=== PATIENT | male | born 1955 | race African-American/Black ===

== ENCOUNTER 2018-07-11 03:42 | Inpatient (IN) | payer MEDICARE ==
[2018-07-11 04:40] LABS: INR-International Normal Ratio 1.3; Prothrombin Time 15.9 SEC (12.0-14.7)
[2018-07-11 04:50] LABS: ALT (SGPT) 14 U/L (8-55); AST (SGOT) 21 U/L (5-34); Acetaminophen Less than 6.0 mcg/mL (10.0-30.0); Alcohol Less than 10 mg/dL (Less than 10); Alkaline Phosphatase 97 U/L (40-150); Anion Gap 18 mmol/L (10-20); BUN (Urea Nitrogen) 102 mg/dL (8.4-25.7); Bilirubin, Total 0.3 mg/dL (0.2-1.2); CK (CPK) 200 U/L (30-200); Calc. Creatinine Clearance 0 mL/min (70-130); Calcium 9.2 mg/dL (7.8-10.44); Carbon Dioxide 17 mmol/L (23-31); Chloride 108 mmol/L (98-107); Estimated GFR-MDRD 14; Glucose 136 mg/dL (80-115); Potassium 4.6 mmol/L (3.5-5.1); Salicylate Less than 8.0 mg/dL (15.0-30.0); Sodium 138 mmol/L (136-145)
[2018-07-11 04:52] LABS: CKMB 1.6 ng/mL (0-6.6); Troponin I 0.013 ng/mL (< 0.028)
[2018-07-11 04:54] LABS: Hemoglobin 9.2 g/dL (14.0-18.0); Mean Corpuscular HGB CONC 32.5 g/dL (32.0-36.0); Mean Corpuscular Hemoglobin 29.9 pg (27.0-31.0); Mean Corpuscular Volume 91.8 fL (78.0-98.0); Mean Platelet Volume 6.5 fL (7.4-10.4); Platelet Count 457 thou/uL (130-400); RBC Distribution Width 16.3 % (11.5-14.5); Red Blood Cell (RBC) Count 3.06 mill/uL (4.70-6.10); Reflex for Review?? YES
[2018-07-11 05:01] LABS: Band 22 % (5-11); Eosinophils 2 % (0-10); Lymphocytes 2 % (21-51); MDiff Complete? YES; Metamyelocyte 8 % (0-0); Monocytes 4 % (0-10); Myelocyte 11 % (0-0); Neutrophil 51 % (42-75); PLT Morphology Comment Appears Increased
[2018-07-11] MEDS ORDERED: niCARdipine 20MG In NaCl 20 MG/200 ML BAG ONE ×2 (05:03→07:39)
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
[2018-07-11] MEDS ORDERED: Ondansetron ODT 4 MG TAB PO PRN (07:47)
[2018-07-11] MEDS ORDERED: Acetaminophen 650 MG Suppository PR PRN (07:47)
--- NOTE | 2018-07-11 07:54 | CT ---
CT OF THE BRAIN WITHOUT CONTRAST: INDICATION: History of altered mental status. COMPARISON: Prior CT of the brain dated 12/29/15 and CTA of the head dated 09/18/12. Comparison is also made with an MRI of the brain dated 12/31/15. FINDINGS: There has been interval development of intraventricular hemorrhage distending the third ventricle. T his is new from the comparison examination. No hydrocephalus is evident. No definite acute infarct is noted. There is a large left parietal temporal region of encephalomalacia likely related to prior infarct. There is ex vacuo dilatation of the posterior horn and temporal horn of the left lateral v entricle. There are stable chronic lacunar infarcts involving the thalami bilaterally as well as the right globus pallidus. Lacunar infarcts involving the paramedian yoel and right inferior cerebellar hemisphere. There is some mucosal thickening within the inferior aspect of the right maxillary sinu s. Mastoid air cells are clear. The skull is intact. IMPRESSION: 1. New intraventricular hemorrhage distending the third ventricle without evidence of hydrocephalus. Recommend followup CTA of the head with contrast for evaluation for possible underlying aneurysm. No evidence of aneurysm was seen on a CTA of the head in 09/18/12. These findings were called to Dr. Darden at 4:50 a.m. on 07/11/18. 2. Stable chronic ischemic change as above. CODE CR POS: HEATHER
--- NOTE | 2018-07-11 07:56 | PRG ---
DATE OF SERVICE: 07/11/2018 The patient was seen and examined and agree with Liana García PA-C's evaluation, 07/10/2018. The patient is a 63-year-old man, who was admitted for complaints of insomnia and nausea. He has a m ild delirium, being oriented only to person, although he was interactive. He has no focal deficit. He has a past medical history including CML, hypertension, and has been fou nd to have significant renal dysfunction on admission. CT of the head reveals a third ventricular hemorrhage. This was not present on previous imaging in 0 12/2015, although he does have evidence of a previous stroke in both the left hemisphere and the brain stem. There is no ventriculomegaly. IMPRESSION AND PLAN: The patient has a new intraventricular hemorrhage, which may or may not be rela erick to his presenting complaints. He had significant metabolic issues that are being worked up by Me cottrell. No neurosurgical intervention is planned. I recommend a repeat head CT in the morning, whic h we will coordinate.
--- NOTE | 2018-07-11 07:58 | RAD ---
PORTABLE CHEST 1 VIEW: PORTABLE CHEST 1 VIEW: DATE: 07/11/18. Time: 4:09 A.M. HISTORY: Altered mental status. FINDINGS: Comparison is made with the exam of 12/10/16. The heart size is normal. There is continued blunting of the right costophrenic angle. No lobar con solidation, pneumothoraces, fredrick pulmonary edema, or large effusion is seen. There are degenerative changes in the spine. IMPRESSION: Stable exam since 12/10/16. POS: PAULINO
[2018-07-11] MEDS: Ondansetron HCl/PF 4 MG/2 ML Vial IVP PRN ×2 (08:54→16:01)
[2018-07-11] MEDS: Famotidine/PF 20 mg/2ml Vial SLOW IVP SCH (08:54)
[2018-07-11] MEDS ORDERED: Lorazepam 2 MG/ML VIAL ONE (09:16)
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
[2018-07-11 13:06] LABS: Uric Acid 12.9 mg/dL (3.5-7.2)
[2018-07-11] MEDS ORDERED: Amlodipine 10 MG TAB PO SCH (14:45)
[2018-07-11] MEDS: Acetaminophen 325 MG TAB PO PRN (16:00)
[2018-07-11] MEDS: niCARdipine HCl 25 MG in Sodium Chloride 0.9% 250 ML 240 ML IVPB SCH ×2 (16:00→21:41)
[2018-07-11] MEDS: Sodium Chloride 0.9% 1,000 ML IV SCH ×2 (16:09→21:41)
[2018-07-11 16:33] VITALS: BMI 21.6
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
--- NOTE | 2018-07-11 19:33 | ULT ---
RENAL ULTRASOUND: 07/11/18 INDICATION: Acute renal insufficiency. Pina scale and doppler color flow imaging performed. FINDINGS: Symmetric size of each kidney approximately 8 cm in length present. There is no discrete renal mass o r hydronephrosis evident bilaterally. The urinary bladder is mildly distended, grossly unremarkable. IMPRESSION: No overt hydronephrosis. POS: [facility]
[2018-07-11 19:37] LABS: Amphetamine Not Detected (NotDetected); Barbiturates Screen Not Detected (NotDetected); Benzodiazepine Screen Detected (NotDetected); Cocaine Metabolite Screen Not Detected (NotDetected); Medtox Control Line Valid? VALID (VALID); Medtox Reader # READER 4; Methadone Not Detected (NotDetected); Methamphetamine Not Detected (NotDetected); Opiate Screen Not Detected (NotDetected); Oxycodone Screen Not Detected (NotDetected); Phencyclidine (PCP) Not Detected (NotDetected); THC/Cannabinoid Screen Not Detected (NotDetected); Tricyclic Screen Not Detected (NotDetected)
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
--- NOTE | 2018-07-12 03:31 | CON ---
NEPHROLOGY CONSULT DATE OF CONSULTATION: 07/11/2018 CONSULTING PHYSICIAN: Dr. White. REASON FOR CONSULTATION: Acute kidney injury with elevated uric acid. REASON FOR ADMISSION: Altered mentation. HISTORY OF PRESENT ILLNESS: This is a 63-year-old with history of hyperlipidemia, hypertension, CML, gout, CKD, came to the hospital with an altered mentation and was found to have elevated creatinine and patient's baseline creatinine runs around 3.5-3.7 and was found to be 5.1. His uric acid also el evated with a white count of 201 and Nephrology is consulted to rule out tumor lysis and hyperviscosi ty syndrome. Now the patient is not able to give good history due to the stroke and he has word finding difficulti es. No chest pain or palpitation reported. PAST MEDICAL HISTORY: Positive for hyperlipidemia, hypertension, CML, speech impairment, vision loss , hearing loss, chronic kidney disease, gout, depression and sent home. PAST SURGICAL HISTORY: Abdominal surgery, left leg surgery. HOME MEDICATIONS: Hydralazine, venlafaxine, allopurinol, amlodipine, Sprycel, Toprol-XL, sodium bica rbonate, trazodone. ALLERGIES: CODEINE. SOCIAL HISTORY: No smoking, alcohol, or illicit drug abuse. FAMILY HISTORY: No history of any kidney disease. REVIEW OF SYSTEMS: Cannot be obtained. PHYSICAL EXAMINATION: GENERAL: This is a well-built male in mild distress. VITAL SIGNS: Temperature 98.7, pulse 100, respiratory rate 18, blood pressure 136/80. HEENT: Atraumatic, normocephalic. Oral mucosa moist. NECK: Supple. No masses. CARDIOVASCULAR: S1, S2 heard. Rate and rhythm regular. RESPIRATORY: Clear. GASTROINTESTINAL: Abdomen is soft. MUSCULOSKELETAL: 1+ edema. DERMATOLOGIC: No skin rash. NEUROLOGIC: Alert, awake. PSYCHIATRIC: Mood and affect normal. LABORATORY DATA: Hemoglobin is 9.2, WBC is 201, potassium 4.6, BUN is 102, creatinine is 5.1. ASSESSMENT AND PLAN: 1. Acute kidney injury on chronic kidney disease stage 4 with recommend IV hydration. Avoid nephrot oxins. 2. Hypouricemia, slightly tumor lysis syndrome. Follow up with Hematology/Oncology and consider elsie buricase if possible. 3. Leukocytosis, severe. 4. Anemia. Follow with Hematology/Oncology. 5. Metabolic acidosis. 6. Edema, controlled. 7. Hypertension, stable. 8. Phosphorus level normal. Calcium level is normal. Potassium level , no acute indication fo r dialysis. We will start on IV fluids. We will consider rasburicase in consultation with Hematolog y/Oncology. We will continue to follow. Thank you for the consult.
[2018-07-12] MEDS: niCARdipine HCl 25 MG in Sodium Chloride 0.9% 250 ML 240 ML IVPB SCH ×2 (05:30→09:11)
[2018-07-12] MEDS: Sodium Chloride 0.9% 1,000 ML IV SCH ×2 (05:32→10:29)
[2018-07-12 05:51] LABS: ALT (SGPT) 11 U/L (8-55); AST (SGOT) 19 U/L (5-34); Albumin 3.4 g/dL (3.4-4.8); Alkaline Phosphatase 77 U/L (40-150); Anion Gap 14 mmol/L (10-20); BUN (Urea Nitrogen) 103 mg/dL (8.4-25.7); Bilirubin, Total 0.2 mg/dL (0.2-1.2); Calc. Creatinine Clearance 14 mL/min (70-130); Calcium 8.4 mg/dL (7.8-10.44); Carbon Dioxide 15 mmol/L (23-31); Cardiac Risk 6.3 (Less than 4.5); Chloride 116 mmol/L (98-107); Cholesterol 113 mg/dl (< 200 Desired); Estimated GFR-MDRD 15; Globulin 2.6 g/dL (2.4-3.5); Glucose 119 mg/dL (80-115); HDL Cholesterol 18 mg/dL (>60 Neg Risk); LDL Cholesterol, Calculated 36 mg/dL; Magnesium 1.8 mg/dL (1.6-2.6); Potassium 4.9 mmol/L (3.5-5.1); Sodium 140 mmol/L (136-145); Triglycerides 295 mg/dL (Less than 150)
[2018-07-12 07:02] LABS: Hemoglobin 6.6 g/dL (14.0-18.0); Mean Corpuscular HGB CONC 30.1 g/dL (32.0-36.0); Mean Corpuscular Hemoglobin 27.9 pg (27.0-31.0); Mean Corpuscular Volume 92.5 fL (78.0-98.0); Mean Platelet Volume 6.6 fL (7.4-10.4); Platelet Count 388 thou/uL (130-400); RBC Distribution Width 16.1 % (11.5-14.5); Red Blood Cell (RBC) Count 2.38 mill/uL (4.70-6.10)
--- NOTE | 2018-07-12 07:46 | CT ---
PRELIMINARY REPORT/[facility]/EMERGENTY AFTER-HOURS PROCEDURE CT Head Without Intravenous Contrast CLINICAL HISTORY: 63 years old, male; Condition or disease; Aneurysm, cerebral; Patient HX: F/u eval ich TECHNIQUE: Axial computed tomography images of the head/brain without intravenous contrast. COMPARISON: CT Brain WO Con 07/11/2018 4:43 AM FINDINGS: As before, there is evidence for acute/recent hemorrhage within the third ventricle. There is also a more rounded area of hemorrhage just superior to third ventricle, measuring 14 mm in AP diameter. This appears slightly smaller in the interval, previously measuring 16 mm. No definite new hemorrhage in the interval. Ventricle size is not significantly changed, no obvious hydrocephalus. Continued followup will be helpful to exclude developing hydrocephalus. There is decreased attenuation in the periventricular white matter, likely from microvascular disease . There are old lacunar infarcts in the basal ganglia regions and thalami bilaterally, more prominent o n the right. Old infarcts again seen seen in the left temporal/posterior parietal/occipital regions. No definite acute infarct by CT. No definite acute skull fracture. Included paranasal sinuses are essentially clear. IMPRESSION: Essentially stable intracranial hemorrhage, see above details/discussion. No definite new hemorrhage in the interval. Stable ventricle size, no obvious hydrocephalus at this time. Changes of microvascular disease, and old infarcts, details above. Thank you for allowing us to participate in the care of your patient. Dictated and Authenticated by: Barry Mclean MD 07/12/2018 3:46 AM Central Time ([place] & [place]) FINAL REPORT HEAD CT WITHOUT CONTRAST: Comparison: 07-11-18 History: Evaluate endocranial hemorrhage. Follow up exam. FINDINGS/IMPRESSION: This report is in agreement with the preliminary report by [facility]. Stable intraventricular hemorrhage. S table configuration of the ventricular system. Stable malacic change and ex vacuo dilation involving the left cerebrum. POS: [facility]
[2018-07-12 08:12] LABS: Band 23 % (5-11); Blast 1 % (0-0); Lymphocytes 2 % (21-51); MDiff Complete? YES; Metamyelocyte 7 % (0-0); Monocytes 2 % (0-10); Myelocyte 12 % (0-0); Neutrophil 52 % (42-75); Reflex for Review?? NO
[2018-07-12] MEDS: Famotidine/PF 20 mg/2ml Vial SLOW IVP SCH (08:24)
[2018-07-12] MEDS: Amlodipine 10 MG TAB PO SCH (08:25)
[2018-07-12] MEDS ORDERED: Prevnar 13-Val Conj/PF 0.5 ML SYRINGE IM ONE (09:00)
--- NOTE | 2018-07-12 11:26 | PRG ---
DATE OF SERVICE: 07/12/2018 Mr. Saha is alert and appropriate in general. He is nonfocal. His repeat CT scan is unchanged. Devin hall has a third ventricular hemorrhage without evidence of hydrocephalus. ASSESSMENT AND PLAN: Spontaneous third ventricular hemorrhage. I agree with Dr. Olsen that this ma y represent poor platelet function in the setting of his chronic myelogenous leukemia and/or renal di sease. We have no plans for neurosurgical intervention. I will arrange for a followup CT scan in 4 weeks.
--- NOTE | 2018-07-12 12:57 | PRG ---
DATE OF SERVICE: 07/12/2018 SERVICE: Pulmonary Medicine INTERVAL HISTORY: The patient is doing fine from a respiratory standpoint. He is breathing comfortably. Neurologically, he has been stable. His blood pressures are still elevated requiring some blood pressure medications. Otherwise, there has been no interval change to his condition. He got started on anti-uric acid medications. PHYSICAL EXAMINATION: VITAL SIGNS: Currently afebrile with a T-max of 100.2, pulse 121, blood pressure 145/83, respirations 18, saturation 100% on room air. GENERAL: The patient is awake, alert, in no apparent distress. LUNGS: Decent air entry. There is no prolonged expiratory phase or wheezing present. HEART: Normal rate, regular. ABDOMEN: Soft, nontender, nondistended. Bowel sounds are positive. MUSCULOSKELETAL: No cyanosis or clubbing. There is no pitting in the bilateral lower extremities. LABORATORY DATA: WBC 181,000, hemoglobin 6.6, platelets 388,000. Creatinine 4.93 and down trending, BUN 103, anion gap 14, bicarbonate 15 and down trending , chloride 116, increasing, sodium 140. Liver function studies are essentially unremarkable. LDH 668. Phosphorus falls within normal limits. Uric acid level was elevated at 12.9. Urine drug screen is positive for benzodiazepines. IMAGING: CT of the head demonstrates stable intraventricular hemorrhage. Stable chronic stroke changes in the left cerebrum are also noted. ASSESSMENT: 1. Intraventricular hemorrhage. 2. Hypertensive emergency. 3. Chronic myelogenous leukemia. 4. Tumor lysis syndrome, mild. 5. Acute kidney injury on chronic kidney disease 4. DISCUSSION AND PLAN: We will add Coreg back to the patient's medications. Hopefully, we will be able to transition him off of his Nicardipine drip. Once he does, he can be transitioned to the medical unit. Pulmonary Critical Care will continue to follow along while patient remains in this location. PATRICIO
[2018-07-12] MEDS ORDERED: Carvedilol 6.25 MG TAB PO SCH (13:00)
[2018-07-12] MEDS: Sodium Bicarbonate 100 MEQ in Dextrose 5% in Water 1,000 ML IV SCH ×2 (14:32→23:24)
[2018-07-12] MEDS: Carvedilol 6.25 MG TAB PO SCH (17:45)
--- NOTE | 2018-07-12 17:45 | PRG ---
DATE OF SERVICE: 07/12/2018 SUBJECTIVE: Patient was seen and examined at bedside and overnight events noted. Patient denies any shortness of breath or chest pain or palpitation. No history of nausea or vomiting or diarrhea or f ever or chills or cramps. OBJECTIVE: GENERAL: This is a well-built male in no apparent distress. VITAL SIGNS: Temperature 99, pulse 112, respiratory rate 18, blood pressure 118/61. HEENT: Atraumatic, normocephalic. Oral mucosa is moist. NECK: Supple. CARDIOVASCULAR: S1, S2 heard. Rate and rhythm regular. RESPIRATORY: Clear to auscultation. GASTROINTESTINAL: Abdomen is soft. MUSCULOSKELETAL: No tenderness. No edema. DERMATOLOGIC: No skin rash. NEUROLOGIC: Alert and awake and oriented x3. No focal neurologic deficits. Moving all the extremiti es. PSYCHIATRIC: Mood and affect normal. LABORATORY DATA: Potassium is 4.9, bicarbonate is 15, BUN 103, creatinine is 4.93. ASSESSMENT AND PLAN: 1. Acute kidney injury on chronic kidney disease stage 4. Renal function with slight improvement. W e will continue to follow. Avoid nephrotoxins and continue IV fluids. 2. Hyperuricemia. We will recheck uric acid. Continue IV fluids. Consider Rasburicase for . 3. Tumor lysis syndrome, mild. 4. Metabolic acidosis. 5. Edema, controlled. 6. Anemia. 7. Renal function seems to be stable. Avoid nephrotoxins and will continue IV fluids.
[2018-07-12] MEDS: Allopurinol 100 MG TAB PO SCH (21:54)
[2018-07-13 05:22] LABS: Phosphorus 2.9 mg/dL (2.3-4.7); Uric Acid 13.1 mg/dL (3.5-7.2)
[2018-07-13 06:37] LABS: Mean Corpuscular HGB CONC 29.9 g/dL (32.0-36.0); Mean Corpuscular Hemoglobin 27.4 pg (27.0-31.0); Mean Corpuscular Volume 91.5 fL (78.0-98.0); Mean Platelet Volume 6.9 fL (7.4-10.4); Platelet Count 362 thou/uL (130-400); RBC Distribution Width 16.3 % (11.5-14.5); Red Blood Cell (RBC) Count 2.21 mill/uL (4.70-6.10)
[2018-07-13 06:47] LABS: Anion Gap 18 mmol/L (10-20); BUN (Urea Nitrogen) 91 mg/dL (8.4-25.7); Calc. Creatinine Clearance 15 mL/min (70-130); Calcium 8.7 mg/dL (7.8-10.44); Carbon Dioxide 18 mmol/L (23-31); Chloride 108 mmol/L (98-107); Estimated GFR-MDRD 15; Glucose 110 mg/dL (80-115); Potassium 3.9 mmol/L (3.5-5.1); Sodium 140 mmol/L (136-145)
[2018-07-13 06:51] LABS: MDiff Complete? YES
[2018-07-13 06:52] LABS: Band 23 % (5-11); Eosinophils 2 % (0-10); Lymphocytes 3 % (21-51); Metamyelocyte 7 % (0-0); Monocytes 8 % (0-10); Myelocyte 1 % (0-0); Neutrophil 56 % (42-75); Nucleated RBC 2 % (0); PLT Morphology Comment Appears Adequate
[2018-07-13] MEDS: Famotidine/PF 20 mg/2ml Vial SLOW IVP SCH (09:00)
[2018-07-13] MEDS: Carvedilol 6.25 MG TAB PO SCH ×2 (09:00→17:35)
[2018-07-13] MEDS: Amlodipine 10 MG TAB PO SCH (09:01)
[2018-07-13] MEDS: Allopurinol 100 MG TAB PO SCH ×2 (09:01→21:14)
[2018-07-13] MEDS: Nicotine 14 MG PATCH TOP SCH (09:54)
[2018-07-13 11:45] LABS: Ref Lab Test Ordered G-6-PD; Reference Lab Name LABCORP
[2018-07-13] MEDS: Sodium Bicarbonate 100 MEQ in Dextrose 5% in Water 1,000 ML IV SCH (14:12)
--- NOTE | 2018-07-13 14:33 | PDOC.PN ---
- Subjective Encounter Start Date: 07/12/18 Encounter Start Time: 09:30 pt seen in ICU. working with PT. tachycardic and regular. confused, not agitated. No acute overnight events, speech sounds better, no focal deficits, no F/C, no N /V/D/C ROS not obtainable due to dementia - Objective Resuscitation Status: Resuscitation Status FULL:Full Resuscitation MAR Reviewed: Yes Vital Signs & Weight: Vital Signs (12 hours) Temp Pulse Pulse Pulse Resp BP BP 07/13/18 11:59 99.6 F 103 H 16 07/13/18 10:12 104 H 101 H 144/79 H 07/13/18 09:01 100 144/78 H 07/13/18 09:00 144/78 H 07/13/18 07:30 100.2 F H 100 20 07/13/18 04:00 99.8 F H 113 H 20 BP BP Pulse Ox 07/13/18 11:59 132/73 95 07/13/18 10:12 138/81 07/13/18 09:01 07/13/18 09:00 07/13/18 07:30 144/78 H 94 L 07/13/18 04:00 136/72 100 Weight Admit Weight 142 lb 3.17 oz Weight 142 lb 3.17 oz Most Recent Monitor Data Heart Rate from ECG 111 NIBP 134/78 NIBP BP-Mean 90 Respiration from ECG 22 SpO2 100 I&O: 07/12/18 07/13/18 07/14/18 06:59 06:59 06:59 Intake Total 3375 3076 600 Output Total 1085 0 Balance 2290 3076 600 Result Diagrams: 07/13/18 04:40 07/13/18 04:40 Phys Exam - Physical Examination Constitutional: NAD HEENT: PERRLA, moist MMs, sclera anicteric, oral pharynx no lesions Neck: no nodes, no JVD, supple, full ROM Respiratory: no wheezing, no rales, no rhonchi, clear to auscultation bilateral Cardiovascular: RRR, no significant murmur, no rub Gastrointestinal: soft, non-tender, no distention, positive bowel sounds Musculoskeletal: no edema, pulses present Neurological: moves all 4 limbs Lymphatic: no nodes Skin: no rash, normal turgor, cap refill <2 seconds Dx/Plan (1) VINCENT (acute kidney injury) Code(s): N17.9 - ACUTE KIDNEY FAILURE, UNSPECIFIED Status: Acute (2) Hypertensive urgency Code(s): I16.0 - HYPERTENSIVE URGENCY Status: Acute (3) Intraventricular hemorrhage Code(s): I61.5 - NONTRAUMATIC INTRACEREBRAL HEMORRHAGE, INTRAVENTRICULAR Status: Acute (4) Metabolic encephalopathy Code(s): G93.41 - METABOLIC ENCEPHALOPATHY Status: Acute (5) CKD (chronic kidney disease), stage IV Code(s): N18.4 - CHRONIC KIDNEY DISEASE, STAGE 4 (SEVERE) Status: Chronic (6) CML (chronic myelocytic leukemia) Code(s): C92.10 - CHRONIC MYELOID LEUK, BCR/ABL-POSITIVE, NOT ACHIEVE REMIS Status: Chronic (7) GERD (gastroesophageal reflux disease) Code(s): K21.9 - GASTRO-ESOPHAGEAL REFLUX DISEASE WITHOUT ESOPHAGITIS Status: Chronic (8) Gout Code(s): M10.9 - GOUT, UNSPECIFIED Status: Chronic Qualifiers: Gout site: unspecified site Gout etiology: unspecified cause Chronicity: chronic Presence of tophus: without tophus Qualified Code(s): M1A.9XX0 - Chronic gout, unspecified, without tophus (tophi) (9) Hypertension Code(s): I10 - ESSENTIAL (PRIMARY) HYPERTENSION Status: Chronic Qualifiers: Hypertension type: essential hypertension Qualified Code(s): I10 - Essential (primary) hypertension - Plan cont current plan of care, PT/OT, social studies teacher, speech therapy, respiratory therapy * . follow up on NSG rec, PT/OT findings Renal follow ing for VINCENT on CKD,m and Heme/Onc following for CML
--- NOTE | 2018-07-13 14:37 | PDOC.PN ---
- Subjective Encounter Start Date: 07/13/18 Encounter Start Time: 10:15 -: non-verbal pt more agitated today, trying to get up and leave. No F/C, no N/V/D/C, no CP or SOB No other acute events. Repeat CT neg for change in the bleed. Heme and Renal following ROS not obtainable - Objective Resuscitation Status: Resuscitation Status FULL:Full Resuscitation MAR Reviewed: Yes Vital Signs & Weight: Vital Signs (12 hours) Temp Pulse Pulse Pulse Resp BP BP 07/13/18 11:59 99.6 F 103 H 16 07/13/18 10:12 104 H 101 H 144/79 H 07/13/18 09:01 100 144/78 H 07/13/18 09:00 144/78 H 07/13/18 07:30 100.2 F H 100 20 07/13/18 04:00 99.8 F H 113 H 20 BP BP Pulse Ox 07/13/18 11:59 132/73 95 07/13/18 10:12 138/81 07/13/18 09:01 07/13/18 09:00 07/13/18 07:30 144/78 H 94 L 07/13/18 04:00 136/72 100 Weight Admit Weight 142 lb 3.17 oz Weight 142 lb 3.17 oz Most Recent Monitor Data Heart Rate from ECG 111 NIBP 134/78 NIBP BP-Mean 90 Respiration from ECG 22 SpO2 100 I&O: 07/12/18 07/13/18 07/14/18 06:59 06:59 06:59 Intake Total 3375 3076 600 Output Total 1085 0 Balance 2290 3076 600 Result Diagrams: 07/13/18 04:40 07/13/18 04:40 Radiology Reviewed by me: Yes Phys Exam - Physical Examination Constitutional: NAD HEENT: PERRLA, moist MMs, sclera anicteric, oral pharynx no lesions Neck: no nodes, no JVD, supple, full ROM Respiratory: no wheezing, no rales, no rhonchi, clear to auscultation bilateral Cardiovascular: RRR, no significant murmur, no rub Gastrointestinal: soft, non-tender, no distention, positive bowel sounds Musculoskeletal: no edema Neurological: non-focal Lymphatic: no nodes Psychiatric: normal affect Skin: no rash, normal turgor, cap refill <2 seconds Dx/Plan (1) VINCENT (acute kidney injury) Code(s): N17.9 - ACUTE KIDNEY FAILURE, UNSPECIFIED Status: Acute Comment: renal following. on bcarb drip, but keeps pulling IV off and trying to get up (2) Hypertensive urgency Code(s): I16.0 - HYPERTENSIVE URGENCY Status: Resolved (3) Intraventricular hemorrhage Code(s): I61.5 - NONTRAUMATIC INTRACEREBRAL HEMORRHAGE, INTRAVENTRICULAR Status: Acute (4) Metabolic encephalopathy Code(s): G93.41 - METABOLIC ENCEPHALOPATHY Status: Acute (5) CKD (chronic kidney disease), stage IV Code(s): N18.4 - CHRONIC KIDNEY DISEASE, STAGE 4 (SEVERE) Status: Chronic (6) CML (chronic myelocytic leukemia) Code(s): C92.10 - CHRONIC MYELOID LEUK, BCR/ABL-POSITIVE, NOT ACHIEVE REMIS Status: Chronic (7) GERD (gastroesophageal reflux disease) Code(s): K21.9 - GASTRO-ESOPHAGEAL REFLUX DISEASE WITHOUT ESOPHAGITIS Status: Chronic (8) Gout Code(s): M10.9 - GOUT, UNSPECIFIED Status: Chronic Qualifiers: Gout site: unspecified site Gout etiology: unspecified cause Chronicity: chronic Presence of tophus: without tophus Qualified Code(s): M1A.9XX0 - Chronic gout, unspecified, without tophus (tophi) (9) Hypertension Code(s): I10 - ESSENTIAL (PRIMARY) HYPERTENSION Status: Chronic Qualifiers: Hypertension type: essential hypertension Qualified Code(s): I10 - Essential (primary) hypertension - Plan cont current plan of care, PT/OT, web content & social media manager * .
--- NOTE | 2018-07-13 18:01 | PRG ---
DATE OF SERVICE: 07/13/2018 SERVICE: Pulmonary Medicine. INTERVAL HISTORY: The patient is doing fine from a respiratory standpoint. He has been normal change to his condition. He denies any shortness of breath or chest discomfort currently. Kidney function is improving a little bit. He certainly breathing comfortably and has no complaints there. He did not have cough or sputum production. OBJECTIVE: VITAL SIGNS: Afebrile, pulse 109, blood pressure 137/77, respirations 16, saturation 96% on room air. GENERAL: The patient is awake, alert, no apparent distress. LUNGS: Excellent air entry with no prolonged expiratory phase or wheezing. HEART: Normal rate, regular. ABDOMEN: Soft, nontender, nondistended. Bowel sounds are positive. MUSCULOSKELETAL: No cyanosis or clubbing. There is no pitting in the bilateral lower extremities. NEUROLOGIC: Grossly nonfocal. LABORATORY DATA: WBC 183,000, hemoglobin 6.0, platelets 362. INR 1.3. Creatinine 4.81, gently down trending. BUN 91. Basic metabolic profile is otherwise unremarkable. Toxicology is positive for benzodiazepines, but otherwise unremarkable. Uric acid level continues to increase. ASSESSMENT: 1. Intraventricular hemorrhage. 2. Hypertensive emergency. 3. Chronic myelogenous leukemia. 4. Tumor lysis syndrome, minimal. 5. Acute kidney injury on chronic kidney disease IV. DISCUSSION AND PLAN: At this point, the patient has no further requirements for inpatient Pulmonary Critical Care opinion. He tells me that his oncologist is Trinity Mak M.D., over at [facility]. I actually called Trinity and it turns out that she has not been at [facility] for over 3 years and she is actually relocated to [facility] in a different location altogether. She has no records available because she is in a different system and has no access to [facility] records. As such, if we want any additional information, we will have to go through [facility]. He was previously put on hospice because he was not going to be a good candidate for dialysis. He has been on hospice for over 8 months at this point. When he was at home, he hit his lifeline alert. The alert should have called hospice, but emergency services were dispatched instead. As such, he ended up being brought back to the hospital. From my perspective, hospice would be an appropriate disposition , if the patient does not want (or cannot have) dialysis or chemotherapy moving forward. Please call with additional questions or concerns moving forward, but at this point, he has no further requirements for my opinion and I will disappear. MTDD
--- NOTE | 2018-07-13 19:05 | PRG ---
DATE OF SERVICE: 07/13/2018 SUBJECTIVE: Patient was seen and examined at bedside and overnight events noted. Patient denies any shortness of breath or chest pain or palpitation. No history of nausea or vomiting or diarrhea or f ever or chills or cramps. OBJECTIVE: GENERAL: This is a well-built male, in no apparent distress. VITAL SIGNS: Temperature , blood pressure 137/77. HEENT: Atraumatic, normocephalic. Oral mucosa is moist. NECK: Supple. CARDIOVASCULAR: S1, S2 heard. Rate and rhythm regular. RESPIRATORY: Clear to auscultation. GASTROINTESTINAL: Abdomen is soft. MUSCULOSKELETAL: No tenderness. No edema. DERMATOLOGIC: No skin rash. NEUROLOGIC: Alert and awake and oriented x3. No focal neurologic deficits. Moving all the extremit ies. PSYCHIATRIC: Mood and affect normal. LABORATORY DATA: Potassium is 3.9, BUN is 91, creatinine is 4.8. ASSESSMENT AND PLAN: 1. Acute kidney injury on chronic kidney disease stage IV. Renal function is stable. 2. Tumor lysis syndrome. 3. Hyperuricemia, not getting better, consider rasburicase. I had a discussion with Dr. Piper from Hematology/Oncology and plan is to check G6PD and if not deficiency, we will consider rasburicase. 4. Metabolic acidosis. 5. Edema, controlled. 6. Anemia. 7. We will continue to follow.
[2018-07-14] MEDS: Sodium Bicarbonate 100 MEQ in Dextrose 5% in Water 1,000 ML IV SCH ×2 (01:13→16:22)
[2018-07-14] MEDS: Acetaminophen 325 MG TAB PO PRN ×3 (04:22→20:26)
[2018-07-14 06:01] LABS: Anion Gap 15 mmol/L (10-20); BUN (Urea Nitrogen) 80 mg/dL (8.4-25.7); Calc. Creatinine Clearance 14 mL/min (70-130); Calcium 8.4 mg/dL (7.8-10.44); Carbon Dioxide 27 mmol/L (23-31); Chloride 104 mmol/L (98-107); Estimated GFR-MDRD 14; Glucose 120 mg/dL (80-115); Magnesium 1.6 mg/dL (1.6-2.6); Potassium 3.8 mmol/L (3.5-5.1); Sodium 142 mmol/L (136-145)
[2018-07-14 06:11] LABS: Hemoglobin 5.6 g/dL (14.0-18.0); Mean Corpuscular Hemoglobin 27.4 pg (27.0-31.0); Mean Corpuscular Volume 91.5 fL (78.0-98.0); Mean Platelet Volume 6.7 fL (7.4-10.4); Platelet Count 356 thou/uL (130-400); RBC Distribution Width 16.4 % (11.5-14.5); Red Blood Cell (RBC) Count 2.05 mill/uL (4.70-6.10)
[2018-07-14 06:42] LABS: Band 2 % (5-11); Hypochromia MODERATE=16-30 cells (100X) (0-5/hpf); Lymphocytes 6 % (21-51); MDiff Complete? YES; Metamyelocyte 6 % (0-0); Monocytes 7 % (0-10); Myelocyte 1 % (0-0); Neutrophil 78 % (42-75); Nucleated RBC 5 % (0); PLT Morphology Comment Appears Adequate; Polychromasia SLIGHT = 2-3 cells (100X) (0-2/hpf); Reflex for Review?? NO
--- NOTE | 2018-07-14 10:03 | CT ---
BRAIN CT WITHOUT CONTRAST: HISTORY: Altered mental status. Followup exam. COMPARISON: 07/12/2018. FINDINGS: Stable malacic change involving the left temporo-occipital parietal lobe. Stable hyperdensity in the third ventricle. Hyperdensity at the level of foramen of Monro has decreased. There is no midline shift. Basilar cisterns are patent. Stable chronic small-vessel ischemic change of the white matter. IMPRESSION: Redemonstration of intraventricular hemorrhage. The degree of hemorrhage has slightly decreased when compared to the prior exam. POS: [facility]
[2018-07-14] MEDS: Allopurinol 100 MG TAB PO SCH ×2 (13:09→20:09)
[2018-07-14] MEDS: Amlodipine 10 MG TAB PO SCH (13:09)
[2018-07-14] MEDS: Carvedilol 6.25 MG TAB PO SCH ×2 (13:09→17:43)
[2018-07-14] MEDS: Nicotine 14 MG PATCH TOP SCH (13:11)
[2018-07-14] MEDS: Famotidine/PF 20 mg/2ml Vial SLOW IVP SCH (13:11)
--- NOTE | 2018-07-14 17:35 | PRG ---
DATE OF SERVICE: 07/14/2018 NEPHROLOGY PROGRESS NOTE SUBJECTIVE: Patient was seen and examined at bedside and overnight events noted. Patient denies any shortness of breath or chest pain or palpitation. No history of nausea or vomiting or diarrhea or f ever or chills or cramps. OBJECTIVE: GENERAL: This is a well-built male who is confused. VITAL SIGNS: Temperature 98.1, pulse 92, respiratory rate 18, blood pressure 109/61. HEENT: Atraumatic, normocephalic. Oral mucosa is moist. NECK: Supple. CARDIOVASCULAR: S1, S2 heard. Rate and rhythm regular. RESPIRATORY: Clear to auscultation. GASTROINTESTINAL: Abdomen is soft. MUSCULOSKELETAL: No tenderness. No edema. DERMATOLOGIC: No skin rash. NEUROLOGIC: Confused. PSYCHIATRIC: Mood and affect normal. LABORATORY DATA: Potassium is 3.8, BUN 80, creatinine is 5.06. ASSESSMENT AND PLAN: 1. Acute kidney injury. BUN is getting better down to 80 from 103. 2. Creatinine is stable. 3. Tumor lysis syndrome. Follow up with Hematology/Oncology. 4. Hyperuricemia, not getting better, waiting for G6PD level. 5. Metabolic acidosis. 6. Edema, controlled. 7. Anemia. 8. CML. 9. Follow up with Hematology/Oncology. No acute indication for dialysis. If severe hemodialysis pr esent, may not be a good candidate for dialysis. We will follow.
[2018-07-14] MEDS ORDERED: Meclizine HCl 12.5 MG TAB PO PRN (18:34)
[2018-07-14] MEDS: Ondansetron HCl/PF 4 MG/2 ML Vial IVP PRN (20:26)
[2018-07-15] MEDS: Sodium Bicarbonate 100 MEQ in Dextrose 5% in Water 1,000 ML IV SCH ×3 (02:55→22:34)
[2018-07-15] MEDS: Famotidine/PF 20 mg/2ml Vial SLOW IVP SCH (08:05)
[2018-07-15] MEDS: Nicotine 14 MG PATCH TOP SCH (08:05)
[2018-07-15] MEDS: Carvedilol 6.25 MG TAB PO SCH ×2 (08:06→16:31)
[2018-07-15] MEDS: Amlodipine 10 MG TAB PO SCH (08:06)
[2018-07-15] MEDS: Allopurinol 100 MG TAB PO SCH ×2 (08:06→20:19)
[2018-07-15 11:53] LABS: Band 17 % (5-11); Eosinophils 1 % (0-10); Hemoglobin 8.7 g/dL (14.0-18.0); Lymphocytes 3 % (21-51); MDiff Complete? YES; Macrocytosis SLIGHT = 6-15 cells (100X) (0-5/hpf); Mean Corpuscular HGB CONC 33.2 g/dL (32.0-36.0); Mean Corpuscular Volume 90.3 fL (78.0-98.0); Mean Platelet Volume 6.8 fL (7.4-10.4); Metamyelocyte 11 % (0-0); Microcytosis SLIGHT = 6-15 cells (100X) (0-5/hpf); Monocytes 10 % (0-10); Myelocyte 12 % (0-0); Neutrophil 46 % (42-75); Nucleated RBC 5 % (0); PLT Morphology Comment Appears Adequate; Platelet Count 352 thou/uL (130-400); Polychromasia MODERATE = 3-4 cells (100X) (0-2/hpf); RBC Distribution Width 15.4 % (11.5-14.5); Red Blood Cell (RBC) Count 2.89 mill/uL (4.70-6.10)
--- NOTE | 2018-07-15 13:50 | PRG ---
DATE OF SERVICE: 07/15/2018 SUBJECTIVE: Patient was seen and examined at bedside and overnight events noted. Patient denies any shortness of breath or chest pain or palpitation. No history of nausea or vomiting or diarrhea or fever or chills or cramps. OBJECTIVE: GENERAL: This is a well-built male in no apparent distress. VITAL SIGNS: Temperature , respiratory rate , blood pressure 128/74. HEENT: Atraumatic, normocephalic. Oral mucosa is moist. NECK: Supple. CARDIOVASCULAR: S1 and S2 heard. Rate and rhythm regular. RESPIRATORY: Clear to auscultation. GASTROINTESTINAL: Abdomen is soft. MUSCULOSKELETAL: No tenderness. No edema. DERMATOLOGIC: No skin rash. NEUROLOGIC: Alert and awake and oriented x3. No focal neurologic deficits. Moving all the extremit ies. PSYCHIATRIC: Mood and affect normal. LABORATORY DATA: Potassium 3.8, BUN is 8, creatinine is 5.06. ASSESSMENT AND PLAN: 1. Acute kidney injury, getting worse. 2. Chronic kidney disease. 3. Tumor lysis syndrome. Follow with Hematology/Oncology. 4. Hyperuricemia. 5. Edema. 6. Chronic myelogenous leukemia. Prognosis is guarded. We will follow. No acute indication for dialysis.
--- NOTE | 2018-07-15 15:21 | PDOC.PN ---
- Subjective Encounter Start Date: 07/14/18 Encounter Start Time: 11:10 pt somnolent and hard to arouse, mumbles but answers questions No F/C, no N/V/ds/C, no acute overnight events, no agitation ROS not obtainable - Objective Resuscitation Status: Resuscitation Status DNR:Do Not Resuscitate MAR Reviewed: Yes Vital Signs & Weight: Vital Signs (12 hours) Temp Pulse Resp BP BP Pulse Ox 07/15/18 12:00 99 F 85 20 138/78 100 07/15/18 08:06 90 128/74 07/15/18 08:00 99.7 F H 90 20 140/81 100 07/15/18 04:00 99.1 F 90 19 125/81 99 Weight Admit Weight 142 lb 3.17 oz Weight 142 lb 3.17 oz Most Recent Monitor Data Heart Rate from ECG 111 NIBP 134/78 NIBP BP-Mean 90 Respiration from ECG 22 SpO2 100 I&O: 07/14/18 07/15/18 07/16/18 06:59 06:59 06:59 Intake Total 1800 50 Balance 1800 50 Result Diagrams: 07/15/18 11:13 07/14/18 05:35 Phys Exam - Physical Examination Constitutional: NAD HEENT: PERRLA, moist MMs, sclera anicteric, oral pharynx no lesions Neck: no nodes, no JVD, supple, full ROM Respiratory: no wheezing, clear to auscultation bilateral Cardiovascular: RRR, no rub Gastrointestinal: soft, non-tender, no distention, positive bowel sounds Musculoskeletal: no edema Neurological: non-focal Lymphatic: no nodes Skin: no rash, normal turgor, cap refill <2 seconds Dx/Plan (1) VINCENT (acute kidney injury) Code(s): N17.9 - ACUTE KIDNEY FAILURE, UNSPECIFIED Status: Acute Comment: renal following. on bicarb drip, but keeps pulling IV off and trying to get up (2) Hypertensive urgency Code(s): I16.0 - HYPERTENSIVE URGENCY Status: Resolved (3) Intraventricular hemorrhage Code(s): I61.5 - NONTRAUMATIC INTRACEREBRAL HEMORRHAGE, INTRAVENTRICULAR Status: Acute (4) Metabolic encephalopathy Code(s): G93.41 - METABOLIC ENCEPHALOPATHY Status: Acute (5) CKD (chronic kidney disease), stage IV Code(s): N18.4 - CHRONIC KIDNEY DISEASE, STAGE 4 (SEVERE) Status: Chronic (6) CML (chronic myelocytic leukemia) Code(s): C92.10 - CHRONIC MYELOID LEUK, BCR/ABL-POSITIVE, NOT ACHIEVE REMIS Status: Chronic (7) GERD (gastroesophageal reflux disease) Code(s): K21.9 - GASTRO-ESOPHAGEAL REFLUX DISEASE WITHOUT ESOPHAGITIS Status: Chronic (8) Gout Code(s): M10.9 - GOUT, UNSPECIFIED Status: Chronic Qualifiers: Gout site: unspecified site Gout etiology: unspecified cause Chronicity: chronic Presence of tophus: without tophus Qualified Code(s): M1A.9XX0 - Chronic gout, unspecified, without tophus (tophi) (9) Hypertension Code(s): I10 - ESSENTIAL (PRIMARY) HYPERTENSION Status: Chronic Qualifiers: Hypertension type: essential hypertension Qualified Code(s): I10 - Essential (primary) hypertension - Plan cont current plan of care, plan discussed w/ family * . home with hospice, will follow today and see if he wakes up more. suspect he is adjusting to the seroquel
[2018-07-15] MEDS: Acetaminophen 325 MG TAB PO PRN (20:18)
[2018-07-15] MEDS ORDERED: Fioricet 325/50/40 mg Tablet PO SCH (22:00)
[2018-07-16] MEDS: Acetaminophen 325 MG TAB PO PRN ×4 (05:46→20:16)
[2018-07-16] MEDS: Sodium Bicarbonate 100 MEQ in Dextrose 5% in Water 1,000 ML IV SCH ×3 (05:46→23:06)
[2018-07-16] MEDS: Allopurinol 100 MG TAB PO SCH ×2 (08:19→20:16)
[2018-07-16] MEDS: Amlodipine 10 MG TAB PO SCH (08:19)
[2018-07-16] MEDS: Carvedilol 6.25 MG TAB PO SCH ×2 (08:20→16:43)
[2018-07-16] MEDS: Famotidine/PF 20 mg/2ml Vial SLOW IVP SCH (08:21)
[2018-07-16] MEDS: Nicotine 14 MG PATCH TOP SCH (08:21)
--- NOTE | 2018-07-16 13:19 | RAD ---
CHEST 1 VIEW: HISTORY: Fever. COMPARISON: Chest radiograph 07/11/2018. FINDINGS: Subtle right basilar airspace opacity. No pneumothorax. No effusion. IMPRESSION: Subtle right basilar airspace opacity concerning for infection. Followup recommended. POS: [facility]
--- NOTE | 2018-07-16 14:07 | PDOC.PN ---
- Subjective Encounter Start Date: 07/15/18 Encounter Start Time: 11:45 pt more awake, no F/c, no n/V/d/c, no CP or sOB. no family at bedside No acute vents overnight, still a little more agitated than on the higher seroquel dose ROS performe d, pt denies all problems, but due to dementia, doubt hew is reliable - Objective Resuscitation Status: Resuscitation Status DNR:Do Not Resuscitate MAR Reviewed: Yes Vital Signs & Weight: Vital Signs (12 hours) Temp Pulse Resp BP BP Pulse Ox 07/16/18 11:54 102.6 F H 107 H 16 161/87 H 95 07/16/18 08:20 143/86 H 07/16/18 08:19 103 H 143/86 H 07/16/18 08:00 99 07/16/18 07:43 99.7 F H 103 H 16 143/86 H 99 07/16/18 04:30 100.3 F H 111 H 18 165/89 H 97 Weight Admit Weight 142 lb 3.17 oz Weight 142 lb 3.17 oz Most Recent Monitor Data Heart Rate from ECG 111 NIBP 134/78 NIBP BP-Mean 90 Respiration from ECG 22 SpO2 100 I&O: 07/15/18 07/16/18 07/17/18 06:59 06:59 06:59 Intake Total 50 1338 120 Balance 50 1338 120 Result Diagrams: 07/15/18 11:13 07/14/18 05:35 Phys Exam - Physical Examination Constitutional: NAD HEENT: PERRLA, moist MMs, sclera anicteric, oral pharynx no lesions Neck: no nodes, no JVD, supple, full ROM Respiratory: no wheezing, no rales, no rhonchi, clear to auscultation bilateral Cardiovascular: RRR, no significant murmur, no rub Gastrointestinal: soft, non-tender, no distention, positive bowel sounds Musculoskeletal: edema present Neurological: normal sensation, moves all 4 limbs Lymphatic: no nodes Skin: no rash, normal turgor, cap refill <2 seconds Dx/Plan (1) VINCENT (acute kidney injury) Code(s): N17.9 - ACUTE KIDNEY FAILURE, UNSPECIFIED Status: Acute Comment: renal following. on bicarb drip, but keeps pulling IV off and trying to get up (2) Hypertensive urgency Code(s): I16.0 - HYPERTENSIVE URGENCY Status: Resolved (3) Intraventricular hemorrhage Code(s): I61.5 - NONTRAUMATIC INTRACEREBRAL HEMORRHAGE, INTRAVENTRICULAR Status: Acute (4) Metabolic encephalopathy Code(s): G93.41 - METABOLIC ENCEPHALOPATHY Status: Acute (5) CKD (chronic kidney disease), stage IV Code(s): N18.4 - CHRONIC KIDNEY DISEASE, STAGE 4 (SEVERE) Status: Chronic (6) CML (chronic myelocytic leukemia) Code(s): C92.10 - CHRONIC MYELOID LEUK, BCR/ABL-POSITIVE, NOT ACHIEVE REMIS Status: Chronic (7) GERD (gastroesophageal reflux disease) Code(s): K21.9 - GASTRO-ESOPHAGEAL REFLUX DISEASE WITHOUT ESOPHAGITIS Status: Chronic (8) Gout Code(s): M10.9 - GOUT, UNSPECIFIED Status: Chronic Qualifiers: Gout site: unspecified site Gout etiology: unspecified cause Chronicity: chronic Presence of tophus: without tophus Qualified Code(s): M1A.9XX0 - Chronic gout, unspecified, without tophus (tophi) (9) Hypertension Code(s): I10 - ESSENTIAL (PRIMARY) HYPERTENSION Status: Chronic Qualifiers: Hypertension type: essential hypertension Qualified Code(s): I10 - Essential (primary) hypertension - Plan cont current plan of care, PT/OT, protective services social worker, out of bed/ambulate, DVT proph w/heparin * . home possible later today with hhospice
--- NOTE | 2018-07-16 14:10 | PDOC.PN ---
- Subjective Encounter Start Date: 07/16/18 Encounter Start Time: 12:15 pt awkae, alert, denies and problems, pain, no CP, no SOB, no N/V/D/c. [facility] at [facility], updated to findings Pt has fever 102.4 now. + sweats now soaked his gown. no other complaints ROS performed, pt not reliable - Objective Resuscitation Status: Resuscitation Status DNR:Do Not Resuscitate MAR Reviewed: Yes Vital Signs & Weight: Vital Signs (12 hours) Temp Pulse Resp BP BP Pulse Ox 07/16/18 11:54 102.6 F H 107 H 16 161/87 H 95 07/16/18 08:20 143/86 H 07/16/18 08:19 103 H 143/86 H 07/16/18 08:00 99 07/16/18 07:43 99.7 F H 103 H 16 143/86 H 99 07/16/18 04:30 100.3 F H 111 H 18 165/89 H 97 Weight Admit Weight 142 lb 3.17 oz Weight 142 lb 3.17 oz Most Recent Monitor Data Heart Rate from ECG 111 NIBP 134/78 NIBP BP-Mean 90 Respiration from ECG 22 SpO2 100 I&O: 07/15/18 07/16/18 07/17/18 06:59 06:59 06:59 Intake Total 50 1338 120 Balance 50 1338 120 Result Diagrams: 07/15/18 11:13 07/14/18 05:35 Radiology Reviewed by me: Yes EKG Reviewed by me: Yes Phys Exam - Physical Examination Constitutional: NAD HEENT: PERRLA, moist MMs, sclera anicteric, oral pharynx no lesions right lateral visual field defect stable Neck: no nodes, no JVD, supple, full ROM Respiratory: no rhonchi, clear to auscultation bilateral high pitched en expiratory wheezes heard, mild Cardiovascular: RRR, no significant murmur, no rub Gastrointestinal: soft, non-tender, no distention, positive bowel sounds Musculoskeletal: edema present Neurological: non-focal, normal sensation, moves all 4 limbs Lymphatic: no nodes Psychiatric: normal affect Skin: no rash, normal turgor, cap refill <2 seconds Dx/Plan (1) VINCENT (acute kidney injury) Code(s): N17.9 - ACUTE KIDNEY FAILURE, UNSPECIFIED Status: Acute Comment: renal following. on bicarb drip, but keeps pulling IV off and trying to get up (2) Hypertensive urgency Code(s): I16.0 - HYPERTENSIVE URGENCY Status: Resolved (3) Intraventricular hemorrhage Code(s): I61.5 - NONTRAUMATIC INTRACEREBRAL HEMORRHAGE, INTRAVENTRICULAR Status: Acute (4) Metabolic encephalopathy Code(s): G93.41 - METABOLIC ENCEPHALOPATHY Status: Acute (5) CKD (chronic kidney disease), stage IV Code(s): N18.4 - CHRONIC KIDNEY DISEASE, STAGE 4 (SEVERE) Status: Chronic (6) CML (chronic myelocytic leukemia) Code(s): C92.10 - CHRONIC MYELOID LEUK, BCR/ABL-POSITIVE, NOT ACHIEVE REMIS Status: Chronic (7) GERD (gastroesophageal reflux disease) Code(s): K21.9 - GASTRO-ESOPHAGEAL REFLUX DISEASE WITHOUT ESOPHAGITIS Status: Chronic (8) Gout Code(s): M10.9 - GOUT, UNSPECIFIED Status: Chronic Qualifiers: Gout site: unspecified site Gout etiology: unspecified cause Chronicity: chronic Presence of tophus: without tophus Qualified Code(s): M1A.9XX0 - Chronic gout, unspecified, without tophus (tophi) (9) Hypertension Code(s): I10 - ESSENTIAL (PRIMARY) HYPERTENSION Status: Chronic Qualifiers: Hypertension type: essential hypertension Qualified Code(s): I10 - Essential (primary) hypertension (10) Fever Code(s): R50.9 - FEVER, UNSPECIFIED Status: Acute Qualifiers: Fever type: unspecified Qualified Code(s): R50.9 - Fever, unspecified Comment: check CBC, BMP and mag, check CXR, UA/UCx, BCx X 2. couold be infection, but could be inflammatory due to CML and tumor lysis, or central due to ICH - Plan cont current plan of care, PT/OT, patient financial services specialist, speech therapy, respiratory therapy, out of bed/ambulate * .
[2018-07-16 14:16] LABS: BUN (Urea Nitrogen) 59 mg/dL (8.4-25.7); Calc. Creatinine Clearance 13 mL/min (70-130); Calcium 8.1 mg/dL (7.8-10.44); Carbon Dioxide 22 mmol/L (23-31); Chloride 98 mmol/L (98-107); Estimated GFR-MDRD 13; Glucose 102 mg/dL (80-115); Magnesium 1.7 mg/dL (1.6-2.6); Potassium 4.1 mmol/L (3.5-5.1); Sodium 137 mmol/L (136-145)
[2018-07-16 14:24] LABS: Anion Gap 21 mmol/L (10-20)
--- NOTE | 2018-07-16 14:27 | PRG ---
DATE OF SERVICE: 07/16/2018 SUBJECTIVE: Patient was seen and examined at bedside and overnight events noted. Patient denies any shortness of breath or chest pain or palpitation. No history of nausea or vomiting or diarrhea or f ever or chills or cramps. OBJECTIVE: GENERAL: This is a well-developed male, in no apparent distress. VITAL SIGNS: Temperature , blood pressure 143/86. HEENT: Atraumatic, normocephalic. Oral mucosa is moist. NECK: Supple. CARDIOVASCULAR: S1, S2 heard. Rate and rhythm regular. RESPIRATORY: Clear to auscultation. GASTROINTESTINAL: Abdomen is soft. MUSCULOSKELETAL: No tenderness. No edema. DERMATOLOGIC: No skin rash. NEUROLOGIC: Alert and awake and oriented x3. No focal neurologic deficits. Moving all the extremit ies. PSYCHIATRIC: Mood and affect normal. LABORATORY DATA: Potassium is 3.8, BUN is 80, creatinine is . ASSESSMENT AND PLAN: 1. Acute kidney injury on chronic kidney disease stage IV with worsening creatinine, which is stable . No acute indication for dialysis. 2. Edema, controlled. 3. Hypertension. 4. Hyperuricemia. 5. Tumor lysis syndrome. 6. We will monitor.
[2018-07-16 17:01] LABS: Bilirubin Negative (Negative); Blood, Urine Small (Negative); Clarity CLEAR (Clear); Glucose, Urine (Dipstick) Negative (Negative); Leukocyte Negative (Negative); Nitrite Negative (Negative); Protein, Urine (Dipstick) 100 mg/dL (Neg-Trace); Specific Gravity, Urine 1.009 (1.002-1.036); Urobilinogen 0.2 mg/dL (0.2-1.0); pH, Urine 8.5 (5.0-9.0)
[2018-07-16 17:04] LABS: Bacteria/HPF None Seen HPF (None Seen); Hyaline Casts/LPF 0-3 HYALINE CAST LPF (0-3 Hyaline); Squamous Epithelial 0-3 HPF (0-3); WBC/HPF 0-3 HPF (0-3)
[2018-07-17] MEDS ORDERED: Labetalol HCl 100 MG/20 ML VIAL SLOW IVP PRN (02:26)
[2018-07-17] MEDS: Acetaminophen 325 MG TAB PO PRN (04:05)
[2018-07-17] MEDS ORDERED: ABX IVPB PRN (08:19)
[2018-07-17] MEDS: Famotidine 20 MG TAB PO SCH (08:59)
[2018-07-17] MEDS: Allopurinol 100 MG TAB PO SCH ×2 (09:00→23:09)
[2018-07-17] MEDS: Nicotine 14 MG PATCH TOP SCH (09:00)
[2018-07-17] MEDS: Amlodipine 10 MG TAB PO SCH (09:00)
[2018-07-17 09:15] LABS: Lactic Acid 0.8 mmol/L (0.5-2.2)
[2018-07-17 09:20] LABS: ALT (SGPT) 12 U/L (8-55); AST (SGOT) 21 U/L (5-34); Albumin 3.5 g/dL (3.4-4.8); Alkaline Phosphatase 65 U/L (40-150); Anion Gap 18 mmol/L (10-20); BUN (Urea Nitrogen) 57 mg/dL (8.4-25.7); Bilirubin, Total 0.3 mg/dL (0.2-1.2); Calc. Creatinine Clearance 12 mL/min (70-130); Calcium 8.5 mg/dL (7.8-10.44); Carbon Dioxide 28 mmol/L (23-31); Chloride 95 mmol/L (98-107); Estimated GFR-MDRD 12; Globulin 2.8 g/dL (2.4-3.5); Glucose 124 mg/dL (80-115); Magnesium 1.8 mg/dL (1.6-2.6); Potassium 3.6 mmol/L (3.5-5.1); Protein, Total 6.3 g/dL (5.8-8.1); Sodium 137 mmol/L (136-145)
[2018-07-17 09:32] LABS: Anisocytosis SLIGHT = 6-15 cells (100X) (0-5/hpf); Band 21 % (5-11); Hemoglobin 8.8 g/dL (14.0-18.0); Lymphocytes 2 % (21-51); MDiff Complete? YES; Mean Corpuscular HGB CONC 30.6 g/dL (32.0-36.0); Mean Corpuscular Volume 91.3 fL (78.0-98.0); Mean Platelet Volume 6.3 fL (7.4-10.4); Metamyelocyte 8 % (0-0); Monocytes 2 % (0-10); Myelocyte 18 % (0-0); Neutrophil 49 % (42-75); PLT Morphology Comment Appears Increased; Platelet Count 523 thou/uL (130-400); RBC Distribution Width 14.9 % (11.5-14.5); Red Blood Cell (RBC) Count 3.14 mill/uL (4.70-6.10)
[2018-07-17] MEDS: Sodium Bicarbonate 100 MEQ in Dextrose 5% in Water 1,000 ML IV SCH (13:40)
--- NOTE | 2018-07-17 16:19 | CON ---
DATE OF CONSULTATION: 07/17/2018 HISTORY OF PRESENT ILLNESS: The patient is an unfortunate 63-year-old gentleman with a history of CML, who was noted to have an irregular heart rate. The patient has a history of CML and chronic renal failure. The patient is under primarily comfort care. He has been followed primarily at [facility]. The patient has also had a recent intracerebral hemorrhage. The patient was monitored on telemetry and noted to have a rapid heart rate. The patient is unable to give a coherent history. PAST MEDICAL HISTORY: CML, hypertension, hyperlipidemia, depression. PAST SURGICAL HISTORY: Abdominal surgery, orthopedic surgery. MEDICATIONS: See nursing list. SOCIAL HISTORY: Long history of tobacco abuse. PHYSICAL EXAMINATION: GENERAL/VITAL SIGNS: This is an ill-appearing gentleman who is disoriented with a blood pressure 136/89. NECK: No jugular venous distention. LUNGS: Coarse breath sounds bilateral. HEART: Regular rate and rhythm, normal S1, S2. ABDOMEN: Distended. EXTREMITIES: Showed trace edema. LABORATORY: Sodium 137, potassium 4.1, chloride 98, bicarbonate 22, BUN 59, creatinine 5.3. White blood cell count is 153K, hemoglobin 8.7, hematocrit 26.1 , platelets 352. His EKG reveals normal sinus rhythm with a T-wave abnormality suggestive of ischemia. His air sampling and monitoring revealed nonsustained ventricular tachycardia. IMPRESSION: 1. Nonsustained ventricular tachycardia. 2. CML. 3. Hypertension. 4. Tobacco abuse. This gentleman had a short run of nonsustained ventricular tachycardia. The patient has been switched from Coreg to Toprol during this hospitalization. I would recommend he go back on Toprol. We will follow this patient with you through his hospitalization. PATRICIO
[2018-07-17] MEDS ORDERED: Melatonin 3 MG TAB PO PRN (19:30)
--- NOTE | 2018-07-17 19:31 | PRG ---
DATE OF SERVICE: 07/17/2018 SUBJECTIVE: Patient was seen and examined at bedside and overnight events noted. Patient denies any shortness of breath or chest pain or palpitation. No history of nausea or vomiting or diarrhea or f ever or chills or cramps. OBJECTIVE: GENERAL: This is a well-built male in no apparent distress. VITAL SIGNS: Temperature 97.6, pulse 91, respiratory rate 16, blood pressure 122/65. HEENT: Atraumatic, normocephalic. Oral mucosa is moist. NECK: Supple. CARDIOVASCULAR: S1, S2 heard. Rate and rhythm regular. RESPIRATORY: Clear to auscultation. GASTROINTESTINAL: Abdomen is soft. MUSCULOSKELETAL: No tenderness. No edema. DERMATOLOGIC: No skin rash. NEUROLOGIC: Alert and awake and oriented x3. No focal neurologic deficits. Moving all the extremiti es. PSYCHIATRIC: Mood and affect normal. LABORATORY DATA: Potassium was 3.6, BUN is 57, creatinine is 5.7. ASSESSMENT AND PLAN: 1. Acute kidney injury on chronic kidney disease stage 4 with worsening creatinine. 2. edema. 3. Hypertension. 4. Hyperuricemia. 5. Malaise. His overall, prognosis is guarded. No acute indication for dialysis. We will follow.
--- NOTE | 2018-07-17 22:04 | PDOC.PN ---
- Subjective Encounter Start Date: 07/17/18 Encounter Start Time: 16:00 Patient seen and examined for multiple medical issues. No new complaints. No overnight events - Objective Resuscitation Status: Resuscitation Status DNR:Do Not Resuscitate MAR Reviewed: Yes Vital Signs & Weight: Vital Signs (12 hours) Temp Pulse Resp BP Pulse Ox 07/17/18 20:00 99.9 F H 85 16 126/76 94 L 07/17/18 15:28 98.6 F 91 16 122/65 97 07/17/18 11:27 99.1 F 105 H 16 121/83 99 Weight Admit Weight 142 lb 3.17 oz Weight 142 lb 3.17 oz Most Recent Monitor Data Heart Rate from ECG 111 NIBP 134/78 NIBP BP-Mean 90 Respiration from ECG 22 SpO2 100 I&O: 07/16/18 07/17/18 07/18/18 06:59 06:59 06:59 Intake Total 1338 1772 2396 Balance 1338 1772 2396 Result Diagrams: 07/17/18 08:52 07/17/18 08:52 EKG Reviewed by me: Yes (Tele SR) Phys Exam - Physical Examination Constitutional: NAD Respiratory: no wheezing, no rhonchi Rt basilar rales Cardiovascular: RRR Gastrointestinal: soft, positive bowel sounds Musculoskeletal: no edema Neurological: moves all 4 limbs Dx/Plan - Plan DVT proph w/SCDs IMPRESSION: 1. HCAP ?Pneumococcal 2. Intraventricular bleed 3. VINCENT on CKD 4 4. HTN with HTN crisis 5. NSVT 6. CML / GERD/ Gout / Anemia s/p 2 units PRBC / Other issues per previous notes PLAN: Start Levaquin - adjust dose for renal function AM labs Cont Toprol XL Cont Bicarb drip Cont other meds as below Not on Antiplatelets due to intracranial bleed. Review of Systems - Review of Systems Cardiovascular: negative: chest pain, palpitations, orthopnea, paroxysmal nocturnal dyspnea, edema, light headedness, other Gastrointestinal: negative: Nausea, Vomiting, Abdominal Pain, Diarrhea, Constipation, Melena, Hematochezia, Other - Medications/Allergies Allergies/Adverse Reactions: Allergies Allergy/AdvReac Type Severity Reaction Status Date / Time codeine [Codeine] Allergy Rash Verified 12/11/16 00:15 Medications: Current Medications Acetaminophen (Tylenol) 650 mg PO Q4H PRN PRN Reason: Headache/Fever or Pain Last Admin: 07/17/18 04:05 Dose: 650 mg Acetaminophen (Tylenol) 650 mg VA Q4H PRN PRN Reason: Headache/Fever or Pain Allopurinol (Zyloprim) 100 mg PO BID [facility] Last Admin: 07/17/18 09:00 Dose: 100 mg Amlodipine Besylate (Norvasc) 10 mg PO DAILY [facility] Last Admin: 07/17/18 09:00 Dose: 10 mg Famotidine (Pepcid) 20 mg PO DAILY [facility] Last Admin: 07/17/18 08:59 Dose: 20 mg Sodium Bicarbonate 100 meq/ (Dextrose/Water) 1,100 mls @ 100 mls/hr IV .Q11H [facility] Last Admin: 07/17/18 13:40 Dose: 1,100 mls Levofloxacin 250 mg/ Device 50 mls @ 100 mls/hr IVPB Q2D [facility] Labetalol HCl (Normodyne) 5 mg SLOW IVP Q4H PRN PRN Reason: SBP > 140 Last Admin: 07/17/18 04:05 Dose: 5 mg Meclizine HCl (Antivert) 12.5 mg PO Q8H PRN PRN Reason: Dizziness Last Admin: 07/14/18 18:53 Dose: 12.5 mg Melatonin (Melatonin) 3 mg PO HS PRN PRN Reason: Insomnia Metoprolol Succinate (Toprol Xl) 100 mg PO DAILY [facility] Last Admin: 07/17/18 09:00 Dose: 100 mg Miscellaneous Medication (Pharmacy To Dose) 1 each IVPB DAILYPRN PRN PRN Reason: LABS Nicotine (Nicoderm Patch) 14 mg TOP DAILY [facility] Last Admin: 07/17/18 09:00 Dose: 14 mg Ondansetron HCl (Zofran Odt) 4 mg PO Q6H PRN PRN Reason: Nausea/Vomiting Ondansetron HCl (Zofran) 4 mg IVP Q6H PRN PRN Reason: Nausea/Vomiting Last Admin: 07/14/18 20:26 Dose: 4 mg Quetiapine Fumarate (Seroquel) 12.5 mg PO HS [facility] Last Admin: 07/16/18 20:16 Dose: 12.5 mg Sodium Chloride (Flush - Normal Saline) 10 ml IVF Q12HR [facility] Last Admin: 07/17/18 09:46 Dose: Not Given Sodium Chloride (Flush - Normal Saline) 10 ml IVF PRN PRN PRN Reason: Saline Flush
[2018-07-18] MEDS: Acetaminophen 325 MG TAB PO PRN ×2 (00:21→19:58)
[2018-07-18 05:02] LABS: Hemoglobin 8.4 g/dL (14.0-18.0); Mean Corpuscular HGB CONC 30.7 g/dL (32.0-36.0); Mean Corpuscular Hemoglobin 28.1 pg (27.0-31.0); Mean Corpuscular Volume 91.6 fL (78.0-98.0); Mean Platelet Volume 6.6 fL (7.4-10.4); Platelet Count 515 thou/uL (130-400); RBC Distribution Width 14.6 % (11.5-14.5)
[2018-07-18 05:21] LABS: Anion Gap 15 mmol/L (10-20); BUN (Urea Nitrogen) 58 mg/dL (8.4-25.7); Calc. Creatinine Clearance 12 mL/min (70-130); Calcium 8.2 mg/dL (7.8-10.44); Carbon Dioxide 32 mmol/L (23-31); Chloride 91 mmol/L (98-107); Estimated GFR-MDRD 12; Glucose 109 mg/dL (80-115); Potassium 3.1 mmol/L (3.5-5.1); Sodium 135 mmol/L (136-145)
[2018-07-18 05:49] LABS: Band 12 % (5-11); Hypochromia SLIGHT = 6-15 cells (100X) (0-5/hpf); Lymphocytes 7 % (21-51); MDiff Complete? YES; Metamyelocyte 3 % (0-0); Monocytes 12 % (0-10); Myelocyte 2 % (0-0); Neutrophil 64 % (42-75); Nucleated RBC 1 % (0); PLT Morphology Comment Appears Increased
[2018-07-18] MEDS: Sodium Bicarbonate 100 MEQ in Dextrose 5% in Water 1,000 ML IV SCH ×2 (06:21→18:02)
--- NOTE | 2018-07-18 10:16 | PRG ---
Patient Name: SIGIFREDO BASURTO Date of service: 07/18/2018 Subjective: Patient was seen and examined at bedside and overnight events noted. Patient denies any shortness of breath or chest pain or palpitation. No history of nausea or vomiting or diarrhea or fever or chills or cramps. Objective: General: This is a well-built male in no apparent distress. Vital signs: Temperature 97.3, pulse 81, respiratory rate 18, blood pressure 100/70. HEENT: Atraumatic, normocephalic. Oral mucosa is moist. Neck: Supple. Cardiovascular: S1 S2 heard. Rate and rhythm regular. Respiratory: Clear to auscultation. Gastrointestinal: Abdomen is soft. Musculoskeletal: No tenderness. No edema. Dermatologic: No skin rash. Neurologic: Alert and awake and oriented X3. No focal neurologic deficits. Moving all the extremit ies. Psychiatric: Mood and affect normal. LABORATORY DATA: Potassium is 3.1, BUN 3, creatinine 5.9. ASSESSMENT AND PLAN: 1. Acute kidney injury on chronic kidney disease. 2. Edema. 3. Hypertension. 4. Hyperuricemia. 3. Chronic myelogenous leukemia. Prognosis guarded. Plan for sending him back to hospice. Follow up with Hematology/Oncology for ___ _. We will follow.
[2018-07-18] MEDS: Nicotine 14 MG PATCH TOP SCH (10:29)
[2018-07-18] MEDS: Amlodipine 10 MG TAB PO SCH (10:30)
[2018-07-18] MEDS: Allopurinol 100 MG TAB PO SCH ×2 (10:30→19:58)
[2018-07-18] MEDS: Famotidine 20 MG TAB PO SCH (10:32)
--- NOTE | 2018-07-18 12:11 | RAD ---
SEMIUPRIGHT PORTABLE CHEST ONE VIEW: History: 63-year-old male with follow up pneumonia. Comparison: 07-16-18 FINDINGS: There is some persistent pleural and potentially parenchymal density in the right lower lobe showing little change from the prior study. Follow up CT scan might be helpful for further assessment of this . Heart size is within normal limits. Atherosclerosis of the aorta with ectasia. IMPRESSION: Some right costophrenic angle blunting with some associated opacity. Consider follow up chest CT scan for further assessment. No new process. POS: OFF
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
--- NOTE | 2018-07-18 22:16 | PDOC.PN ---
- Subjective Encounter Start Date: 07/18/18 Encounter Start Time: 11:00 Patient seen and examined for fever and other issues. No new complaints. No overnight events - Objective Resuscitation Status: Resuscitation Status DNR:Do Not Resuscitate MAR Reviewed: Yes Vital Signs & Weight: Vital Signs (12 hours) Temp Pulse Resp BP BP Pulse Ox 07/18/18 20:00 99.8 F H 81 16 109/68 98 07/18/18 16:00 99.9 F H 87 20 120/78 95 07/18/18 11:49 99.5 F 80 12 118/70 96 07/18/18 10:30 98.9 F 88 18 115/69 98/64 97 Weight Admit Weight 142 lb 3.17 oz Weight 142 lb 3.17 oz Most Recent Monitor Data Heart Rate from ECG 111 NIBP 134/78 NIBP BP-Mean 90 Respiration from ECG 22 SpO2 100 I&O: 07/17/18 07/18/18 07/19/18 06:59 06:59 06:59 Intake Total 1772 3496 Balance 1772 3496 Result Diagrams: 07/19/18 04:09 07/19/18 04:09 Additional Labs: Laboratory Tests 07/18/18 04:36 Potassium 3.1 L EKG Reviewed by me: Yes (Tele SR) Phys Exam - Physical Examination Constitutional: NAD Respiratory: no wheezing, no rhonchi few rales at Rt bases Cardiovascular: RRR, no rub Gastrointestinal: soft, positive bowel sounds Dx/Plan - Plan DVT proph w/SCDs IMPRESSION: 1. HCAP ?Pneumococcal 2. Intraventricular bleed 3. VINCENT on CKD 4 / Hypokalemia 4. HTN with HTN crisis 5. NSVT 6. CML / GERD/ Gout / Anemia s/p 2 units PRBC / Other issues per previous notes PLAN: Cont Levaquin Cont ID due to persistent fever Repeat CXR today Replace Potassium AM labs Cont Toprol XL Cont current IVF Cont other meds as below Not on Antiplatelets due to intracranial bleed. Review of Systems - Review of Systems Cardiovascular: negative: chest pain, palpitations, orthopnea, paroxysmal nocturnal dyspnea, edema, light headedness, other Gastrointestinal: negative: Nausea, Vomiting, Abdominal Pain, Diarrhea, Constipation, Melena, Hematochezia, Other - Medications/Allergies Allergies/Adverse Reactions: Allergies Allergy/AdvReac Type Severity Reaction Status Date / Time codeine [Codeine] Allergy Rash Verified 12/11/16 00:15 Medications: Current Medications Acetaminophen (Tylenol) 650 mg PO Q4H PRN PRN Reason: Headache/Fever or Pain Last Admin: 07/18/18 19:58 Dose: 650 mg Acetaminophen (Tylenol) 650 mg NE Q4H PRN PRN Reason: Headache/Fever or Pain Allopurinol (Zyloprim) 100 mg PO BID [facility] Last Admin: 07/18/18 19:58 Dose: 100 mg Amlodipine Besylate (Norvasc) 10 mg PO DAILY [facility] Last Admin: 07/18/18 10:30 Dose: 10 mg Famotidine (Pepcid) 20 mg PO DAILY [facility] Last Admin: 07/18/18 10:32 Dose: 20 mg Sodium Bicarbonate 100 meq/ (Dextrose/Water) 1,100 mls @ 100 mls/hr IV .Q11H [facility] Last Admin: 07/18/18 18:02 Dose: 1,100 mls Levofloxacin 250 mg/ Device 50 mls @ 100 mls/hr IVPB Q2D [facility] Labetalol HCl (Normodyne) 5 mg SLOW IVP Q4H PRN PRN Reason: SBP > 140 Last Admin: 07/17/18 04:05 Dose: 5 mg Meclizine HCl (Antivert) 12.5 mg PO Q8H PRN PRN Reason: Dizziness Last Admin: 07/14/18 18:53 Dose: 12.5 mg Melatonin (Melatonin) 3 mg PO HS PRN PRN Reason: Insomnia Last Admin: 07/18/18 00:21 Dose: 3 mg Metoprolol Succinate (Toprol Xl) 100 mg PO DAILY [facility] Last Admin: 07/18/18 10:30 Dose: 100 mg Miscellaneous Medication (Pharmacy To Dose) 1 each IVPB DAILYPRN PRN PRN Reason: LABS Nicotine (Nicoderm Patch) 14 mg TOP DAILY [facility] Last Admin: 07/18/18 10:29 Dose: 14 mg Ondansetron HCl (Zofran Odt) 4 mg PO Q6H PRN PRN Reason: Nausea/Vomiting Ondansetron HCl (Zofran) 4 mg IVP Q6H PRN PRN Reason: Nausea/Vomiting Last Admin: 07/14/18 20:26 Dose: 4 mg Potassium Chloride (Klor-Con) 20 meq PO QAM-WM [facility] Quetiapine Fumarate (Seroquel) 12.5 mg PO HS [facility] Last Admin: 07/18/18 19:59 Dose: 12.5 mg Sodium Chloride (Flush - Normal Saline) 10 ml IVF Q12HR [facility] Last Admin: 07/18/18 11:36 Dose: Not Given Sodium Chloride (Flush - Normal Saline) 10 ml IVF PRN PRN PRN Reason: Saline Flush
[2018-07-19 04:40] LABS: Mean Corpuscular HGB CONC 30.3 g/dL (32.0-36.0); Mean Corpuscular Hemoglobin 28.8 pg (27.0-31.0); Mean Corpuscular Volume 95.1 fL (78.0-98.0); Mean Platelet Volume 7.1 fL (7.4-10.4); Platelet Count 574 thou/uL (130-400); RBC Distribution Width 14.8 % (11.5-14.5); Red Blood Cell (RBC) Count 3.11 mill/uL (4.70-6.10)
[2018-07-19 04:54] LABS: Anion Gap 16 mmol/L (10-20); BUN (Urea Nitrogen) 56 mg/dL (8.4-25.7); Calc. Creatinine Clearance 12 mL/min (70-130); Carbon Dioxide 30 mmol/L (23-31); Chloride 92 mmol/L (98-107); Estimated GFR-MDRD 12; Glucose 83 mg/dL (80-115); Potassium 3.7 mmol/L (3.5-5.1); Sodium 134 mmol/L (136-145)
[2018-07-19] MEDS: Sodium Bicarbonate 100 MEQ in Dextrose 5% in Water 1,000 ML IV SCH ×2 (05:01→08:29)
[2018-07-19 05:18] LABS: Band 30 % (5-11); Eosinophils 1 % (0-10); Lymphocytes 7 % (21-51); MDiff Complete? YES; Metamyelocyte 4 % (0-0); Monocytes 3 % (0-10); Myelocyte 5 % (0-0); Neutrophil 50 % (42-75); PLT Morphology Comment Appears Increased
[2018-07-19] MEDS: Famotidine 20 MG TAB PO SCH (08:24)
[2018-07-19] MEDS: Amlodipine 10 MG TAB PO SCH (08:24)
[2018-07-19] MEDS: Nicotine 14 MG PATCH TOP SCH (08:25)
[2018-07-19] MEDS: Allopurinol 100 MG TAB PO SCH ×2 (08:25→20:42)
--- NOTE | 2018-07-19 09:17 | PRG ---
Patient Name: SIGIFREDO BASURTO Date of service: 07/19/2018 Subjective: Patient was seen and examined at bedside and overnight events noted. Patient denies any shortness of breath or chest pain or palpitation. No history of nausea or vomiting or diarrhea or fever or chills or cramps. Objective: General: This is a well-built male in no apparent distress. Vital signs: Temperature 98.1, pulse 90, respiratory rate 18, blood pressure 112/70. HEENT: Atraumatic, normocephalic. Oral mucosa is moist. Neck: Supple. Cardiovascular: S1 S2 heard. Rate and rhythm regular. Respiratory: Clear to auscultation. Gastrointestinal: Abdomen is soft. Musculoskeletal: No tenderness. No edema. Dermatologic: No skin rash. Neurologic: Alert and awake and oriented X3. No focal neurologic deficits. Moving all the extremit ies. Psychiatric: Mood and affect normal. LABORATORY: Potassium is 3.7, BUN 56, creatinine is 5.89. ASSESSMENT AND PLAN: 1. Acute kidney injury on chronic kidney stage 5. Renal function is stable. No acute indication fo r dialysis. 2. Edema, controlled. 3. Hypertension. 4. Proteinuria. 5. Hypouricemia. 6. Tumor lysis syndrome. Follow up with Hematology/Oncology. We will follow.
--- NOTE | 2018-07-19 14:10 | PDOC.PN ---
- Subjective Encounter Start Date: 07/19/18 Encounter Start Time: 09:00 Patient seen and examined for VINCENT/intracranial bleed. No new complaints. No overnight events - Objective Resuscitation Status: Resuscitation Status DNR:Do Not Resuscitate MAR Reviewed: Yes Vital Signs & Weight: Vital Signs (12 hours) Temp Pulse Pulse Pulse Resp BP BP 07/19/18 11:58 99.0 F 85 12 07/19/18 08:42 89 86 122/72 07/19/18 08:24 90 112/70 07/19/18 08:13 07/19/18 07:53 99.1 F 90 16 07/19/18 04:00 98.7 F 79 16 BP BP Pulse Ox 07/19/18 11:58 110/70 96 07/19/18 08:42 123/78 07/19/18 08:24 07/19/18 08:13 98 07/19/18 07:53 112/70 98 07/19/18 04:00 101/63 98 Weight Admit Weight 142 lb 3.17 oz Weight 142 lb 3.17 oz Most Recent Monitor Data Heart Rate from ECG 111 NIBP 134/78 NIBP BP-Mean 90 Respiration from ECG 22 SpO2 100 I&O: 07/18/18 07/19/18 07/20/18 06:59 06:59 06:59 Intake Total 3496 1000 Balance 3496 1000 Result Diagrams: 07/19/18 04:09 07/19/18 04:09 EKG Reviewed by me: Yes (Tele SR) Phys Exam - Physical Examination Constitutional: NAD Respiratory: no wheezing, no rhonchi Cardiovascular: RRR, no rub Gastrointestinal: soft, positive bowel sounds Musculoskeletal: no edema Neurological: moves all 4 limbs Dx/Plan - Plan DVT proph w/SCDs IMPRESSION: 1. Fever prob due to CML/Intracranial bleed 2. Intraventricular bleed 3. VINCENT on CKD 5 / Hypokalemia 4. HTN with HTN crisis 5. NSVT - on Toprol 6. CML / GERD/ Gout / Anemia s/p 2 units PRBC / Tumor lysis syndrome /Other issues per previous notes PLAN: DC Levaquin per ID Cont current meds as below No indication for dialysis per Nephro Not on Antiplatelets due to intracranial bleed. Await placement - Stable for dc Review of Systems - Review of Systems Respiratory: negative: Cough, Dry, Shortness of Breath, Hemoptysis, SOB with Excertion, Pleuritic Pain, Sputum, Wheezing Cardiovascular: negative: chest pain, palpitations, orthopnea, paroxysmal nocturnal dyspnea, edema, light headedness, other - Medications/Allergies Allergies/Adverse Reactions: Allergies Allergy/AdvReac Type Severity Reaction Status Date / Time codeine [Codeine] Allergy Rash Verified 12/11/16 00:15 Medications: Current Medications Acetaminophen (Tylenol) 650 mg PO Q4H PRN PRN Reason: Headache/Fever or Pain Last Admin: 07/18/18 19:58 Dose: 650 mg Acetaminophen (Tylenol) 650 mg MT Q4H PRN PRN Reason: Headache/Fever or Pain Allopurinol (Zyloprim) 100 mg PO BID [facility] Last Admin: 07/19/18 08:25 Dose: 100 mg Amlodipine Besylate (Norvasc) 10 mg PO DAILY [facility] Last Admin: 07/19/18 08:24 Dose: 10 mg Famotidine (Pepcid) 20 mg PO DAILY [facility] Last Admin: 07/19/18 08:24 Dose: 20 mg Sodium Bicarbonate 100 meq/ (Dextrose/Water) 1,100 mls @ 100 mls/hr IV .Q11H [facility] Last Admin: 07/19/18 08:29 Dose: 1,100 mls Levofloxacin 250 mg/ Device 50 mls @ 100 mls/hr IVPB Q2D [facility] Last Admin: 07/19/18 08:25 Dose: 50 mls Labetalol HCl (Normodyne) 5 mg SLOW IVP Q4H PRN PRN Reason: SBP > 140 Last Admin: 07/17/18 04:05 Dose: 5 mg Meclizine HCl (Antivert) 12.5 mg PO Q8H PRN PRN Reason: Dizziness Last Admin: 07/14/18 18:53 Dose: 12.5 mg Melatonin (Melatonin) 3 mg PO HS PRN PRN Reason: Insomnia Last Admin: 07/18/18 00:21 Dose: 3 mg Metoprolol Succinate (Toprol Xl) 100 mg PO DAILY [facility] Last Admin: 07/19/18 08:25 Dose: 100 mg Miscellaneous Medication (Pharmacy To Dose) 1 each IVPB DAILYPRN PRN PRN Reason: LABS Nicotine (Nicoderm Patch) 14 mg TOP DAILY [facility] Last Admin: 07/19/18 08:25 Dose: 14 mg Ondansetron HCl (Zofran Odt) 4 mg PO Q6H PRN PRN Reason: Nausea/Vomiting Ondansetron HCl (Zofran) 4 mg IVP Q6H PRN PRN Reason: Nausea/Vomiting Last Admin: 07/14/18 20:26 Dose: 4 mg Potassium Chloride (Klor-Con) 20 meq PO QAM-WM [facility] Last Admin: 07/19/18 08:25 Dose: 20 meq Quetiapine Fumarate (Seroquel) 12.5 mg PO HS [facility] Last Admin: 07/18/18 19:59 Dose: 12.5 mg Sodium Chloride (Flush - Normal Saline) 10 ml IVF Q12HR [facility] Last Admin: 07/19/18 08:26 Dose: 10 ml Sodium Chloride (Flush - Normal Saline) 10 ml IVF PRN PRN PRN Reason: Saline Flush
[2018-07-19 20:17] VITALS: BP 115/65; TEMP 98.8
--- NOTE | 2018-07-20 09:15 | DIS ---
DISCHARGE DISPOSITION: To inpatient rehabilitation. FOLLOWUP: Follow up with primary care physician at [facility] after 1 week. The patient was seen and examined on the day of discharge. Denies any new complaints. BRIEF HOSPITAL COURSE: The patient is a 63-year-old male with hypertension, hyperlipidemia, CVA in t he past, presented to the emergency room with altered mentation. Please refer to the history and phy sical by Dr. Olsen, for further details. The patient was admitted to the Intensive Care Unit with a diagnosis of intracranial bleed. He was s een by Neurosurgery. He was also found to be in hypertensive urgency. He was placed on Cardene drip . The patient was later transferred to the stroke unit. He was also found to be in acute kidney injury on chronic kidney disease stage 4. He was seen by Nephrology as well. He persistently had low-grad e fever and was placed on antibiotics. Blood and urine cultures remained negative. Chest x-ray did not show definite infiltrate. He was seen by Infectious Disease, Dr. Tanner. Dr. Tanner recommended d iscontinuation of the antibiotics. Per Dr. Tnaner his fever is probably secondary to chronic myeloid leukemia as well as intracranial bleed. He will be discharged to inpatient rehabilitation. SIGNIFICANT LABORATORY: WBC on the day of discharge is 162. Creatinine on the day of discharge is 5 .89. INPATIENT CONSULTANTS: 1. Cardiology, Dr. Ramakrishna Figueroa for transient nonsustained ventricular tachycardia. 2. Infectious Disease, Dr. Tanner. 3. Nephrology: Dr. Corrigan. 4. Neurosurgery, Dr. Larson. 5. Oncology, Dr. Piper. 6. Critical Care, Dr. White. DISCHARGE MEDICATIONS: 1. Tylenol 1000 mg twice a day. 2. Amlodipine 10 mg daily. 3. Colace 100 mg b.i.d. 4. Cymbalta 60 mg b.i.d. 5. Toprol-XL 100 mg daily. 6. Flomax 0.4 mg daily. 7. Tramadol 50 mg b.i.d. 8. Allopurinol 100 mg b.i.d. 9. Meclizine as needed. FINAL DIAGNOSES: 1. Toxic metabolic encephalopathy. 2. Intraventricular bleed. 3. Acute kidney injury on chronic kidney disease stage 5. 4. Tumor lysis/hyperuricemia. 5. Hypokalemia. 6. Hypertension with hypertensive crisis. 7. Fever secondary to chronic myelogenous leukemia/intracranial bleed. Antibiotics discontinued per Infectious Disease. 8. Gastroesophageal reflux disease. 9. Gout. 10. Anemia status post 2 units PRBC. Plan of care was discussed with the patient in detail. He stated understanding. Total time coordinating the discharge of this patient was 36 minutes.
== END 2018-07-19 21:43 | DRG 64 ==
LOC: ERS 03:42 → EEVIPCON 05:30 → CCU 05:30 → 2SE 07-12 20:19
PROVIDERS: ADMIT Hospitalist; ATTEND Hospitalist
PROC: 30233N1 Transfusion of Nonautologous Red Blood Cells into Peripheral Vein, Percutaneous Approach (ICD-10-PCS; principal; 2018-07-14)
DX: I61.5 Nontraumatic intracerebral hemorrhage, intraventricular (principal); E88.3 Tumor lysis syndrome; G92 Toxic encephalopathy; N17.9 Acute kidney failure, unspecified; N18.4 Chronic kidney disease, stage 4 (severe); C92.10 Chronic myeloid leukemia, BCR/ABL-positive, not having achieved remission; I16.1 Hypertensive emergency; R41.0 Disorientation, unspecified; I10 Essential (primary) hypertension; E78.5 Hyperlipidemia, unspecified; Z86.73 Personal history of transient ischemic attack (TIA), and cerebral infarction without residual deficits; D64.9 Anemia, unspecified; Z85.830 Personal history of malignant neoplasm of bone; M10.9 Gout, unspecified; R47.9 Unspecified speech disturbances; H91.90 Unspecified hearing loss, unspecified ear; F32.9 Major depressive disorder, single episode, unspecified; Z79.899 Other long term (current) drug therapy; F17.210 Nicotine dependence, cigarettes, uncomplicated; K21.9 Gastro-esophageal reflux disease without esophagitis; F41.9 Anxiety disorder, unspecified; R60.0 Localized edema; R53.81 Other malaise; E78.2 Mixed hyperlipidemia; Z88.5 Allergy status to narcotic agent
CPT/HCPCS: 36415; 36430; 70450; 71045; 76770; 80048; 80053; 80061; 80306; 80307; 81001; 82140; 82553; 83605; 83615; 83735; 83880; 84100; 84443; 84484; 84550; 85025; 85060; 85610; 85730; 86850; 86900; 86901; 87040; 87086; 88237; 88264; 88280; 93005; 96365; 96366; 99406; A4216; G8978-GP-CJ; G8979-GP-CH; G8987-GO-CL; G8988-GO-CJ; G8996-GN-CH; G8997-GN-CH; J1956; J2060; J2405; J7050; J7070; P9016; S0028